=== PATIENT | female | born 1985 | race Caucasian/White ===

== ENCOUNTER → 2018-10-08 14:55 | Observation (INO) ==
[2018-10-08 11:48] LABS: Basophils # 0.1 K/mcL (0.0-0.2); Basophils % 0.5 %; Bilirubin,Urine Negative (Negative); Blood,Urine Negative (Negative); Color,Urine Yellow (Yellow); Eosinophils # 0.1 K/mcL (0.0-0.6); Eosinophils % 0.8 %; Glucose,Urine (UA) Normal (Normal); Hematocrit 35.5 % (35.3-44.9); Hemoglobin 11.3 g/dL (11.5-15.4); Immature Granulocytes % 0.5 % (0-4); Ketones,Urine Negative (Negative); Leukocyte Esterase,Urine Large (Negative); Lymphocytes # 1.7 K/mcL (0.6-4.6); Lymphocytes % 15.5 %; Mean Corpuscular HGB Conc 31.8 g/dL (31.6-35.5); Mean Corpuscular Hemoglobin 24.5 pg (28.0-33.3); Mean Platelet Volume 11.6 fL (9.4-12.4); Monocytes # 0.5 K/mcL (0.0-1.3); Monocytes % 4.7 %; Neutrophils # 8.6 K/mcL (1.6-8.9); Nitrite,Urine Negative (Negative); PH,Urine 6.5 pH Units (5.0-8.0); Platelet Count 260 K/mcL (140-400); Protein,Urine Negative (Neg-Trace); Red Blood Count 4.61 M/mcL (3.82-4.97); Red Cell Distribution Width 16.2 % (11.5-14.5); Specific Gravity,Urine < 1.005 (1.010-1.025); Urobilinogen,Urine Normal (Normal)
[2018-10-08 11:50] LABS: Bacteria,Urine Few per hpf (None-Few); Hyaline Casts,Urine None Seen per lpf (None-Few); RBC,Urine 0-3 per hpf (0-3); Squamous Epithelial Cell,Urine Many per lpf (None-Few); WBC,Urine 15-30 per hpf (0-3)
[2018-10-08 11:57] LABS: Clarity,Urine Clear (Clear)
[2018-10-08 11:58] LABS: Amphetamine Screen,Urine Negative ng/mL (Cutoff=1000); Barbiturate Screen,Urine Negative ng/mL (Cutoff=200); Benzodiazepines Screen,Urine Negative ng/mL (Cutoff=200); Cannabinoid Screen,Urine Negative ng/mL (Cutoff = 50); Cocaine Screen,Urine Negative ng/mL (Cutoff= 300); Opiate Screen,Urine Negative ng/mL (Cutoff=300); Phencyclidine Screen,Urine Negative ng/mL (Cutoff=25)
[2018-10-08 12:07] LABS: Alanine Aminotransferase 12 Units/L (7-52); Aspartate Amino Transferase 14 Units/L (13-39); BUN/Creatinine Ratio 13 (6-26); Blood Urea Nitrogen 6 mg/dL (6-20); Lactate Dehydrogenase 136 Units/L (140-271); Uric Acid 4.5 mg/dL (2.3-7.6); eGFR For Non-African Americans > 60 (> 60)
[2018-10-08 12:12] LABS: Creatinine,Urine 14 mg/dL
--- NOTE | 2018-10-08 14:39 | Discharge Summary ---
Date of Encounter: 10/08/18 Time of Encounter: 14:40 - Discharge Diagnosis (1) 34 weeks gestation of Priority: Primary Status: Acute Comments: Admit to observation for PIH evaluation (2) NST (non-stress test) reactive Priority: Secondary Status: Acute Comments: FHR 140 bpm, moderate variability, +15x15 accels, no decels. (3) Elevated blood pressure affecting in third trimester, antepartum Priority: Secondary Status: Acute Comments: PIH evaluation completed. Labs all WNL. Elevated BP's remain while here. Spoke with Dr. Dominguez regarding plan of care, labs, current BP's. Advised by Dr. Dominguez to start patient on Labetalol 200 mg bid and follow up as scheduled. (4) Pregestational diabetes mellitus, modified White class D Priority: Secondary Status: Acute Comments: Continue Insulin as ordered. Follow up as scheduled for routine visit. - Discharge Medications Prescriptions: New Labetalol [Trandate] 200 mg PO BID #60 tablet Blood Pressure Kit Med,Large [Blood Pressure Monitor] 1 each PRN PRN #1 kit PRN Reason: Blood Pressure Continue raNITIdine HCl [Zantac] 150 mg PO BID Caplet 1 tab PO DAILY Levemir 42 units SQ QAM Humalog 22 units SQ TIDWM Ferrous Sulfate 1 tab PO DAILY Levemir 46 units SQ 2100 Home Medications: raNITIdine HCl [Zantac] 150 mg PO BID 11/12/15 [History] Blood Pressure Kit Med,Large [Blood Pressure Monitor] 1 each MC PRN PRN #1 kit 10/08/18 [Rx] Ferrous Sulfate 1 tab PO DAILY 10/08/18 [History] Humalog 22 units SQ TIDWM 10/08/18 [History] Labetalol [Trandate] 200 mg PO BID #60 tablet 10/08/18 [Rx] Levemir 42 units SQ QAM 10/08/18 [History] Levemir 46 units SQ 2100 10/08/18 [History] Caplet 1 tab PO DAILY 10/08/18 [History] Allergies/Adverse Reactions: Allergy/AdvReac Type Severity Reaction Status Date / Time naproxen Allergy Rash Verified 10/08/18 11:35 Data Procedures and tests throughout hospitalization: Laboratory Tests 10/08/18 10/08/18 10/08/18 11:34 11:34 11:34 WBC 11.0 RBC 4.61 Hgb 11.3 L Hct 35.5 MCV 77.0 L MCH 24.5 L MCHC 31.8 RDW 16.2 H Plt Count 260 MPV 11.6 Immature Gran % 0.5 Seg Neutrophils % 78.0 Lymphocytes % 15.5 Monocytes % 4.7 Eosinophils % 0.8 Basophils % 0.5 Neutrophils # 8.6 Lymphocytes # 1.7 Monocytes # 0.5 Eosinophils # 0.1 Basophils # 0.1 BUN Creatinine Est GFR ( Amer) Est GFR (Non-Af Amer) BUN/Creatinine Ratio Uric Acid AST ALT Lactate Dehydrogenase Urine Color Yellow Urine Clarity Clear Urine pH 6.5 Ur Specific [place] < 1.005 L Urine Protein Negative Urine Glucose (UA) Normal Urine Ketones Negative Urine Blood Negative Urine Nitrite Negative Urine Bilirubin Negative Urine Urobilinogen Normal Ur Leukocyte Esterase Large H Urine Microscopic RBC 0-3 Urine Microscopic WBC 15-30 H Ur Squamous Epith Cells Many H Urine Bacteria Few Hyaline Casts None Seen Urine Creatinine 14 Protein/Creatinin Ratio TNP Urine Total Protein < 4 Urine Opiates Screen Negative Ur Barbiturates Screen Negative Ur Phencyclidine Scrn Negative Ur Amphetamines Screen Negative U Benzodiazepines Scrn Negative Urine Cocaine Screen Negative U Marijuana (THC) Screen Negative Ur Drug Screen Interp See Below 10/08/18 11:34 WBC RBC Hgb Hct MCV MCH MCHC RDW Plt Count MPV Immature Gran % Seg Neutrophils % Lymphocytes % Monocytes % Eosinophils % Basophils % Neutrophils # Lymphocytes # Monocytes # Eosinophils # Basophils # BUN 6 Creatinine 0.45 L Est GFR ( Amer) > 60 Est GFR (Non-Af Amer) > 60 BUN/Creatinine Ratio 13 Uric Acid 4.5 AST 14 ALT 12 Lactate Dehydrogenase 136 L Urine Color Urine Clarity Urine pH Ur Specific [place] Urine Protein Urine Glucose (UA) Urine Ketones Urine Blood Urine Nitrite Urine Bilirubin Urine Urobilinogen Ur Leukocyte Esterase Urine Microscopic RBC Urine Microscopic WBC Ur Squamous Epith Cells Urine Bacteria Hyaline Casts Urine Creatinine Protein/Creatinin Ratio Urine Total Protein Urine Opiates Screen Ur Barbiturates Screen Ur Phencyclidine Scrn Ur Amphetamines Screen U Benzodiazepines Scrn Urine Cocaine Screen U Marijuana (THC) Screen Ur Drug Screen Interp Labs on day of discharge: Labs from last 24 hours 10/08/18 10/08/18 10/08/18 11:34 11:34 11:34 WBC 11.0 RBC 4.61 Hgb 11.3 L Hct 35.5 MCV 77.0 L MCH 24.5 L MCHC 31.8 RDW 16.2 H Plt Count 260 MPV 11.6 Immature Gran % 0.5 Seg Neutrophils % 78.0 Lymphocytes % 15.5 Monocytes % 4.7 Eosinophils % 0.8 Basophils % 0.5 Neutrophils # 8.6 Lymphocytes # 1.7 Monocytes # 0.5 Eosinophils # 0.1 Basophils # 0.1 BUN 6 Creatinine 0.45 L Est GFR ( Amer) > 60 Est GFR (Non-Af Amer) > 60 BUN/Creatinine Ratio 13 Uric Acid 4.5 AST 14 ALT 12 Lactate Dehydrogenase 136 L Urine Color Yellow Urine Clarity Clear Urine pH 6.5 Ur Specific [place] < 1.005 L Urine Protein Negative Urine Glucose (UA) Normal Urine Ketones Negative Urine Blood Negative Urine Nitrite Negative Urine Bilirubin Negative Urine Urobilinogen Normal Ur Leukocyte Esterase Large H Urine Microscopic RBC 0-3 Urine Microscopic WBC 15-30 H Ur Squamous Epith Cells Many H Urine Bacteria Few Hyaline Casts None Seen Urine Creatinine Protein/Creatinin Ratio Urine Total Protein Urine Opiates Screen Ur Barbiturates Screen Ur Phencyclidine Scrn Ur Amphetamines Screen U Benzodiazepines Scrn Urine Cocaine Screen U Marijuana (THC) Screen Ur Drug Screen Interp 10/08/18 11:34 WBC RBC Hgb Hct MCV MCH MCHC RDW Plt Count MPV Immature Gran % Seg Neutrophils % Lymphocytes % Monocytes % Eosinophils % Basophils % Neutrophils # Lymphocytes # Monocytes # Eosinophils # Basophils # BUN Creatinine Est GFR ( Amer) Est GFR (Non-Af Amer) BUN/Creatinine Ratio Uric Acid AST ALT Lactate Dehydrogenase Urine Color Urine Clarity Urine pH Ur Specific [place] Urine Protein Urine Glucose (UA) Urine Ketones Urine Blood Urine Nitrite Urine Bilirubin Urine Urobilinogen Ur Leukocyte Esterase Urine Microscopic RBC Urine Microscopic WBC Ur Squamous Epith Cells Urine Bacteria Hyaline Casts Urine Creatinine 14 Protein/Creatinin Ratio TNP Urine Total Protein < 4 Urine Opiates Screen Negative Ur Barbiturates Screen Negative Ur Phencyclidine Scrn Negative Ur Amphetamines Screen Negative U Benzodiazepines Scrn Negative Urine Cocaine Screen Negative U Marijuana (THC) Screen Negative Ur Drug Screen Interp See Below Date of admission: 10/08/18 11:11 Primary care physician: Bowen Hoyt Discharging clinician: Adenike M Herrera Anticipated date of discharge: 10/08/18 - Patient Status Disposition: Home, Self-Care Condition: Good Functional capacity at discharge: independent ambulation Overall status at discharge: patient is progressing back to baseline - Discharge Instructions Follow Up With: Bowen Hoyt MD [Primary Care Provider] - - Diet and Activity Activity: resume usual activities as tolerated Diet: regular diet Hospital Course [employer] Hospital course: Patient was sent from office by Dr. Dominguez for elevated blood pressures and PIH evaluation. All labs returned WNL but blood pressures continued to be elevated. One dose PO Labetalol 200 mg given while here with decrease in blood pressure after one hour. After speaking with Dr. Dominguez and reviewing plan of care, patient may be discharged home with RX for Labetalol 200 mg po bid. She is to follow up in the office as scheduled for routine visit. Time Attestation: Total time spent providing and/or coordinating discharge services: Time Spent: Less than 30 minutes Exam - Constitutional General appearance IM: A&O X 3, pleasant, no acute distress, answers questions appropriately - Respiratory Respiratory exam: Present: CTAB - Cardiovascular Cardiovascular exam IM: Present: RRR, +S1, +S2 - GI/Abdominal GI/Abdominal exam IM: normal bowel sounds, soft - Rectal Rectal exam: deferred - External exam: normal external exam - Extremities Exam Extremities exam IM: Present: full ROM, normal capillary refill, normal inspection - Neurological Exam Neurological exam: alert, normal gait, oriented X3 - VTE Reasons for not Prescribing Prophylaxis: Treatment not Indicated - Low risk for VTE
== END | disposition home or self-care (01) ==
LOC: 1NENULAB
PROVIDERS: ADMIT Registered Nurse; ATTEND Registered Nurse

== ENCOUNTER 2019-12-11 07:24 | Inpatient (IN) ==
[2019-12-11] MEDS ORDERED: Acetaminophen IV 1,000 MG/100 ML INFUS..BTL ONE (07:38)
[2019-12-11] MEDS ORDERED: CeFAZolin Syr 2,000MG/20 ML 2,000 MG/20 ML SYRINGE IVPB ONE (07:49)
[2019-12-11] MEDS ORDERED: Scopolamine Patch 1.5 MG PATCH.TD72 TD ONE (07:50)
[2019-12-11] MEDS ORDERED: Famotidine 20 MG/2 ML VIAL IVP ONE (07:50)
[2019-12-11] MEDS ORDERED: Pregabalin 75 MG CAPSULE PO ONE (07:50)
[2019-12-11] MEDS ORDERED: *HR* OxyCODONE Immed Rel 5 MG TABLET PO PRN (07:50)
[2019-12-11] MEDS ORDERED: Acetaminophen IV 1,000 MG/100 ML INFUS..BTL IVPB ONE (07:50)
[2019-12-11] MEDS ORDERED: *HR* HYDROmorphone 2 MG TABLET PO PRN (07:50)
[2019-12-11] MEDS ORDERED: *HR* Promethazine 25 MG/ML VIAL IVP PRN (07:50)
[2019-12-11] MEDS ORDERED: Ringers Solution, Lactated 1,000 ML IVC SCH (08:00)
[2019-12-11] MEDS ORDERED: Lidocaine -MPF 4% 5 ML AMPUL ONE (08:43)
[2019-12-11] MEDS ORDERED: Ondansetron 4 MG/2 ML VIAL ONE (08:43)
[2019-12-11] MEDS ORDERED: Lidocaine HCL 4 ML Topical Solution (Laryng-O-Jet Kit Sterile Pak) TP ONE (08:43)
[2019-12-11] MEDS ORDERED: Dexamethasone 4 MG/ML VIAL ONE (08:43)
[2019-12-11] MEDS ORDERED: *HR* Rocuronium Bromide 50 MG/5 ML VIAL ONE (08:43)
[2019-12-11] MEDS ORDERED: Lidocaine -MPF 2% 2 ML VIAL ONE (08:43)
[2019-12-11] MEDS ORDERED: *HR* FentaNYL (PF) 100 MCG/2 ML VIAL ONE (08:44)
[2019-12-11] MEDS ORDERED: *HR* Midazolam HCl 2 MG/2 ML VIAL ONE (08:45)
[2019-12-11] MEDS ORDERED: *HR* Propofol 200 MG/20 ML VIAL IVP ONE (08:45)
[2019-12-11] MEDS ORDERED: *HR* HYDROMORPHONE 2 MG/ML VIAL ONE (08:45)
[2019-12-11] MEDS ORDERED: Lidocaine 1% 0 ML ONE (09:01)
[2019-12-11] MEDS ORDERED: *HR* Heparin 5,000 UNIT/ML VIAL ONE (09:01)
[2019-12-11] MEDS: *HR* HYDROmorphone (PF) 1 MG/ML SYRINGE IVP PRN ×2 (11:14→11:24)
[2019-12-11] MEDS ORDERED: Naloxone 0.4 MG/ML INJ IVP PRN (12:02)
[2019-12-11] MEDS ORDERED: *HR* HYDROcodone/Acet 5/325 mg TABLET PO PRN (12:02)
[2019-12-11] MEDS: Ketorolac 15 MG/ML VIAL IVP SCH ×2 (12:23→16:31)
[2019-12-11] MEDS: Ipratropium/Albuterol Neb 3 ML IH SCH ×4 (12:24→23:45)
[2019-12-11] MEDS: 0.9 % Sodium Chloride 1,000 ML IVC SCH (12:24)
[2019-12-11] MEDS: *HR* Heparin 5,000 UNIT/ML VIAL SQ SCH ×2 (14:41→20:50)
[2019-12-11] MEDS: Gabapentin 300 MG CAPSULE PO SCH ×2 (14:41→20:49)
[2019-12-11] MEDS: Famotidine 20 MG TABLET PO SCH (20:48)
[2019-12-11] MEDS: Sennosides/Docusate Sodium TABLET PO SCH (20:48)
[2019-12-12] MEDS: 0.9 % Sodium Chloride 1,000 ML IVC SCH (01:45)
[2019-12-12] MEDS: Ipratropium/Albuterol Neb 3 ML IH SCH ×2 (03:39→07:43)
[2019-12-12] MEDS: *HR* Heparin 5,000 UNIT/ML VIAL SQ SCH (05:36)
[2019-12-12] MEDS: Ketorolac 15 MG/ML VIAL IVP SCH ×2 (05:36)
[2019-12-12 05:53] LABS: Hematocrit 38.6 % (35.3-44.9); Hemoglobin 11.8 g/dL (11.5-15.4); Mean Corpuscular HGB Conc 30.6 g/dL (31.6-35.5); Mean Corpuscular Hemoglobin 26.5 pg (28.0-33.3); Mean Corpuscular Volume 86.7 fL (83.0-100.0); Mean Platelet Volume 10.9 fL (9.4-12.4); Platelet Count 217 K/mcL (140-400); Red Blood Count 4.45 M/mcL (3.82-4.97); Red Cell Distribution Width 16.7 % (11.5-14.5); White Blood Count 8.4 K/mcL (4.3-11.1)
[2019-12-12 06:11] LABS: % Iron Saturation 13 % (15-50); BUN/Creatinine Ratio 17 (6-26); Blood Urea Nitrogen 9 mg/dL (6-20); Carbon Dioxide 21 mEq/L (23-29); Chloride 105 mEq/L (98-107); Glucose 148 mg/dL (70-105); Iron 41 mcg/dL (50-170); Magnesium 1.8 mg/dL (1.6-2.6); Osmolality,Calculated 283 (280-300); Potassium 3.9 mEq/L (3.5-5.1); Sodium 136 mEq/L (136-145); Transferrin 225 mg/dL (203-362); eGFR For African Americans > 60 (> 60); eGFR For Non-African Americans > 60 (> 60)
[2019-12-12] MEDS: Famotidine 20 MG TABLET PO SCH (08:33)
[2019-12-12] MEDS: Gabapentin 300 MG CAPSULE PO SCH (08:33)
[2019-12-12] MEDS: Sennosides/Docusate Sodium TABLET PO SCH (08:33)
[2019-12-12 08:45] VITALS: BP 133/61
[2019-12-12] MEDS ORDERED: Ursodiol [Urso Forte] 500 MG PO SCH (09:00)
[2019-12-12] MEDS ORDERED: *HR* SitaGLIPtin 100 MG TABLET PO SCH (09:00)
[2019-12-12] MEDS ORDERED: lisinopriL 20 MG TABLET PO SCH (09:00)
[2019-12-12] MEDS ORDERED: FLUoxetine 20 MG CAPSULE PO SCH (09:00)
== END 2019-12-12 10:30 | disposition home or self-care (01) | DRG 143 ==
LOC: SAMDAY 07:24 → ICNU 10:40
PROVIDERS: ADMIT Thoracic Surgery (Cardiothoracic Vascular Surgery); ATTEND Thoracic Surgery (Cardiothoracic Vascular Surgery)